=== PATIENT | male | born 1970 | race Caucasian/White ===

== ENCOUNTER 2017-11-17 17:08 | Inpatient (IN) | payer MEDICARE, OTHER ==
[~2017-11-17] VITALS: Ht 188 cm; Wt 93.0 kg
[2017-11-17] MEDS ORDERED: morphine 4 MG/ML inj SYRINge IV ONE (17:35)
[2017-11-17] MEDS ORDERED: ondansetron/PF 4mg/2ml inj IV ONE (17:35)
[2017-11-17] MEDS ORDERED: normal saline 1000ML IV soln IVB ONE (17:35)
[2017-11-17 18:15] LABS: BASOPHILS % (AUTO) 0.1 % (0-1); EOSINOPHILS # (AUTO) 0.1 X10'3 (0-0.9); EOSINOPHILS % (AUTO) 0.5 % (0-6); HEMATOCRIT 44.9 % (42.0-52.0); HEMOGLOBIN 15.2 g/dl (14.0-17.9); LYMPHOCYTES # (AUTO) 1.1 X10'3 (1.1-4.8); LYMPHOCYTES % (AUTO) 10.7 % (21-51); MEAN CORPUSCULAR HEMOGLOBIN 29.3 PG (27.0-31.0); MEAN CORPUSCULAR HGB CONC 33.9 % (33.0-36.5); MEAN CORPUSCULAR VOLUME 86.4 FL (78-98); MEAN PLATELET VOLUME 7.9 FL (7.4-10.4); MONOCYTES % (AUTO) 0.4 % (2-12); NEUTROPHILS # (AUTO) 9.1 X10'3 (1.8-7.7); NEUTROPHILS % (AUTO) 88.3 % (42-75); PLATELET COUNT 276 X10'3 (140-440); RED CELL DISTRIBUTION WIDTH 14.6 % (11.5-14.5); WHITE BLOOD COUNT 10.3 X10'3 (4.5-11.0)
[2017-11-17 18:30] LABS: ALANINE AMINOTRANSFERASE 27 U/L (12-78); ALBUMIN 3.8 G/DL (3.4-5.0); ALBUMIN/GLOBULIN RATIO 0.9 (1.1-1.5); ALKALINE PHOSPHATASE 145 IU/L (46-116); ANION GAP 13 (8-16); ASPARTATE AMINO TRANSFERASE 25 U/L (10-37); BILIRUBIN,TOTAL 0.8 MG/DL (0.1-1.0); BLOOD UREA NITROGEN 16 MG/DL (7-18); BUN/CREATININE RATIO 13.4 (5.4-32.0); CALCIUM 9.5 MG/DL (8.5-10.1); CHLORIDE 101 MMOL/L (99-107); CREATININE 1.19 MG/DL (0.60-1.10); GLUCOSE 114 MG/DL (70-104); LIPASE 69 U/L (73-393); SODIUM 135 MMOL/L (135-145); TOTAL CARBON DIOXIDE 21.1 MMOL/L (24-32); TOTAL PROTEIN 7.9 G/DL (6.4-8.2); eGFR 65 ML/MIN
[2017-11-17] MEDS ORDERED: iohexol 300mg/ml 100ml inj. ONE (18:33)
[2017-11-17] MEDS ORDERED: acetaminophen 325mg tablet PO PRN (20:40)
[2017-11-17] MEDS ORDERED: ondansetron/PF 4mg/2ml inj IV PRN (20:40)
[2017-11-17] MEDS ORDERED: bisacodyl 10mg suppository rectal RC PRN (20:55)
[2017-11-17 21:05] LABS: CLARITY,URINE CLEAR (Clear); COLOR,URINE DARK YELLOW (Yellow); GLUCOSE, URINE NEGATIVE (Neg); KETONES,URINE NEGATIVE (Neg); LEUKOCYTE ESTERASE ,URINE NEGATIVE (Neg); NITRITES, URINE NEGATIVE (Neg); OCCULT BLOOD,URINE NEGATIVE (Neg); PROTEIN,URINE TRACE mg/dl (Neg); UA COLLECTION TYPE CLN CATCH MIDSTREAM
[2017-11-17] MEDS ORDERED: BUPR1FIL3 SL (21:07)
[2017-11-17] MEDS ORDERED: LEVO125T PO (21:07)
[2017-11-17 21:16] LABS: BACTERIA,URINE NONE SEEN /HPF (Neg); RBC,URINE NONE SEEN /HPF (0-2); SQUAMOUS EPITHELIAL CELL,UR FEW /LPF (FEW); WBC,URINE NONE SEEN /HPF (0-4)
[2017-11-17] MEDS: morphine 4 MG/ML inj SYRINge IV PRN (22:06)
[2017-11-17] MEDS: normal saline 1000ml 1,000 ML IV SCH ×2 (22:06→23:52)
[2017-11-17 23:10] VITALS: BP 138/80
[2017-11-17] MEDS: metroNIDAZOLE-Flagyl 500mg/NS 100 ML IV SCH (23:45)
[2017-11-18] MEDS: morphine 4 MG/ML inj SYRINge IV PRN (05:22)
[2017-11-18 05:33] LABS: BASOPHILS % (AUTO) 0 % (0-1); EOSINOPHILS # (AUTO) 0.1 X10'3 (0-0.9); EOSINOPHILS % (AUTO) 0.5 % (0-6); HEMATOCRIT 37.5 % (42.0-52.0); HEMOGLOBIN 12.9 g/dl (14.0-17.9); LYMPHOCYTES # (AUTO) 1.1 X10'3 (1.1-4.8); LYMPHOCYTES % (AUTO) 9.2 % (21-51); MEAN CORPUSCULAR HEMOGLOBIN 29.7 PG (27.0-31.0); MEAN CORPUSCULAR HGB CONC 34.5 % (33.0-36.5); MEAN CORPUSCULAR VOLUME 86.3 FL (78-98); MEAN PLATELET VOLUME 8.1 FL (7.4-10.4); MONOCYTES # (AUTO) 0.8 X10'3 (0-0.9); MONOCYTES % (AUTO) 7.4 % (2-12); NEUTROPHILS # (AUTO) 9.5 X10'3 (1.8-7.7); NEUTROPHILS % (AUTO) 82.9 % (42-75); PLATELET COUNT 299 X10'3 (140-440); RED BLOOD COUNT 4.34 X10'6 (4.70-6.10); RED CELL DISTRIBUTION WIDTH 14.3 % (11.5-14.5); WHITE BLOOD COUNT 11.5 X10'3 (4.5-11.0)
[2017-11-18 05:45] LABS: ALBUMIN 2.7 G/DL (3.4-5.0); ANION GAP 9 (8-16); BLOOD UREA NITROGEN 17 MG/DL (7-18); BUN/CREATININE RATIO 14.2 (5.4-32.0); CALCIUM 7.8 MG/DL (8.5-10.1); CHLORIDE 106 MMOL/L (99-107); GLUCOSE 116 MG/DL (70-104); MAGNESIUM 1.9 MG/DL (1.5-2.4); PHOSPHORUS 4.2 MG/DL (2.3-4.5); SODIUM 137 MMOL/L (135-145); TOTAL CARBON DIOXIDE 22.4 MMOL/L (24-32); eGFR 64 ML/MIN
[2017-11-18 06:00] VITALS: BP 98/51
[2017-11-18] MEDS: metroNIDAZOLE-Flagyl 500mg/NS 100 ML IV SCH (07:49)
[2017-11-18] MEDS ORDERED: ciprofloxacin lact 400MG/200ML 200 ML IV SCH (08:00)
[2017-11-18 10:00] VITALS: BP 90/50
[2017-11-18 18:00] VITALS: BP 127/74
[2017-11-18] MEDS ORDERED: buprenorphine/naloxone 2-0.5mg sublingual tablet SL ONE (18:05)
[2017-11-18] MEDS: docusate sod 100mg capsule PO SCH (19:45)
[2017-11-18] MEDS: normal saline 1000ml 1,000 ML IV SCH (19:58)
[2017-11-18] MEDS: sennosides 8.6mg tablet PO SCH (21:00)
[2017-11-18 22:00] VITALS: BP 123/68
[2017-11-19] MEDS: normal saline 1000ml 1,000 ML IV SCH ×3 (05:36→22:57)
[2017-11-19 05:58] LABS: ALBUMIN 2.5 G/DL (3.4-5.0); ANION GAP 7 (8-16); BASOPHILS % (AUTO) 0.5 % (0-1); BLOOD UREA NITROGEN 14 MG/DL (7-18); BUN/CREATININE RATIO 13.7 (5.4-32.0); CALCIUM 7.9 MG/DL (8.5-10.1); CHLORIDE 104 MMOL/L (99-107); CREATININE 1.02 MG/DL (0.60-1.10); EOSINOPHILS # (AUTO) 0.1 X10'3 (0-0.9); EOSINOPHILS % (AUTO) 2.4 % (0-6); GLUCOSE 98 MG/DL (70-104); HEMATOCRIT 32.5 % (42.0-52.0); HEMOGLOBIN 10.9 g/dl (14.0-17.9); LYMPHOCYTES # (AUTO) 1.7 X10'3 (1.1-4.8); LYMPHOCYTES % (AUTO) 28.2 % (21-51); MAGNESIUM 1.8 MG/DL (1.5-2.4); MEAN CORPUSCULAR HEMOGLOBIN 29.3 PG (27.0-31.0); MEAN CORPUSCULAR HGB CONC 33.6 % (33.0-36.5); MEAN CORPUSCULAR VOLUME 87.1 FL (78-98); MEAN PLATELET VOLUME 8.1 FL (7.4-10.4); MONOCYTES # (AUTO) 0.6 X10'3 (0-0.9); MONOCYTES % (AUTO) 9.6 % (2-12); NEUTROPHILS # (AUTO) 3.6 X10'3 (1.8-7.7); NEUTROPHILS % (AUTO) 59.3 % (42-75); PHOSPHORUS 2.7 MG/DL (2.3-4.5); PLATELET COUNT 245 X10'3 (140-440); POTASSIUM 3.9 MMOL/L (3.5-5.1); RED BLOOD COUNT 3.72 X10'6 (4.70-6.10); RED CELL DISTRIBUTION WIDTH 14.9 % (11.5-14.5); SODIUM 136 MMOL/L (135-145); TOTAL CARBON DIOXIDE 24.6 MMOL/L (24-32); WHITE BLOOD COUNT 6.1 X10'3 (4.5-11.0); eGFR 78 ML/MIN
[2017-11-19] MEDS ORDERED: NALOXONE SL SCH (08:00)
[2017-11-19] MEDS ORDERED: BUPRENORPHINE SL SCH (08:00)
[2017-11-19] MEDS: docusate sod 100mg capsule PO SCH ×2 (08:00→19:01)
[2017-11-19] MEDS: aspirin 81mg tab.chew PO SCH (08:10)
[2017-11-19] MEDS: levoTHYROXINE 125mcg tablet PO SCH (08:10)
[2017-11-19] MEDS: buprenorphine/naloxone 2-0.5mg sublingual tablet SL SCH (08:30)
[2017-11-19] MEDS ORDERED: temazepam 15mg capsule PO PRN (14:00)
[2017-11-19] MEDS ORDERED: temazepam 15mg capsule PO SCH (14:05)
[2017-11-19 18:00] VITALS: BP 138/80
[2017-11-19] MEDS: sennosides 8.6mg tablet PO SCH (21:00)
[2017-11-19 22:00] VITALS: BP 138/72
[2017-11-20 05:25] LABS: BASOPHILS % (AUTO) 0.4 % (0-1); EOSINOPHILS # (AUTO) 0.1 X10'3 (0-0.9); EOSINOPHILS % (AUTO) 2.4 % (0-6); HEMATOCRIT 33.6 % (42.0-52.0); HEMOGLOBIN 11.1 g/dl (14.0-17.9); LYMPHOCYTES # (AUTO) 2.2 X10'3 (1.1-4.8); LYMPHOCYTES % (AUTO) 37.2 % (21-51); MEAN CORPUSCULAR HEMOGLOBIN 28.8 PG (27.0-31.0); MEAN CORPUSCULAR HGB CONC 32.9 % (33.0-36.5); MEAN CORPUSCULAR VOLUME 87.4 FL (78-98); MEAN PLATELET VOLUME 7.8 FL (7.4-10.4); MONOCYTES # (AUTO) 0.4 X10'3 (0-0.9); MONOCYTES % (AUTO) 6.3 % (2-12); NEUTROPHILS # (AUTO) 3.1 X10'3 (1.8-7.7); NEUTROPHILS % (AUTO) 53.7 % (42-75); PLATELET COUNT 256 X10'3 (140-440); RED BLOOD COUNT 3.85 X10'6 (4.70-6.10); RED CELL DISTRIBUTION WIDTH 14.8 % (11.5-14.5); WHITE BLOOD COUNT 5.8 X10'3 (4.5-11.0)
[2017-11-20 05:57] LABS: ALBUMIN 2.7 G/DL (3.4-5.0); ANION GAP 7 (8-16); BLOOD UREA NITROGEN 8 MG/DL (7-18); BUN/CREATININE RATIO 8.4 (5.4-32.0); CALCIUM 8.3 MG/DL (8.5-10.1); CHLORIDE 106 MMOL/L (99-107); CREATININE 0.95 MG/DL (0.60-1.10); GLUCOSE 102 MG/DL (70-104); PHOSPHORUS 3.8 MG/DL (2.3-4.5); POTASSIUM 3.8 MMOL/L (3.5-5.1); SODIUM 141 MMOL/L (135-145); TOTAL CARBON DIOXIDE 27.9 MMOL/L (24-32); eGFR 84 ML/MIN
[2017-11-20 06:00] VITALS: BP 120/92
[2017-11-20] MEDS: docusate sod 100mg capsule PO SCH (07:55)
[2017-11-20] MEDS: aspirin 81mg tab.chew PO SCH (07:58)
[2017-11-20] MEDS: levoTHYROXINE 125mcg tablet PO SCH (07:58)
[2017-11-20] MEDS: buprenorphine/naloxone 2-0.5mg sublingual tablet SL SCH (07:58)
[2017-11-20] MEDS: normal saline 1000ml 1,000 ML IV SCH (08:37)
[2017-11-20 10:25] VITALS: BP 125/74
[2017-11-20] MEDS ORDERED: METR500T4 PO (12:52)
== END 2017-11-20 14:50 | disposition home or self-care (01) | DRG 392 ==
LOC: ER 17:08 → ED HOLD 20:37 → EDBEDREQ 22:38 → ORTHO 4S 23:00 → CMPBEDREQ 23:03
PROVIDERS: ADMIT Family Medicine; ATTEND Internal Medicine
PROC: BW211ZZ Computerized Tomography (CT Scan) of Abdomen and Pelvis using Low Osmolar Contrast (ICD-10-PCS; principal; 2017-11-17)
DX: K52.9 Noninfective gastroenteritis and colitis, unspecified (principal); E89.0 Postprocedural hypothyroidism; I25.10 Atherosclerotic heart disease of native coronary artery without angina pectoris; G89.29 Other chronic pain; J44.9 Chronic obstructive pulmonary disease, unspecified; K59.00 Constipation, unspecified; I25.2 Old myocardial infarction; Z95.5 Presence of coronary angioplasty implant and graft; Z90.49 Acquired absence of other specified parts of digestive tract; Z88.8 Allergy status to other drugs, medicaments and biological substances; Z79.899 Other long term (current) drug therapy; Z85.850 Personal history of malignant neoplasm of thyroid; Z87.891 Personal history of nicotine dependence
CPT/HCPCS: 36415; 74177; 80048; 80053; 81001; 83605; 83690; 83735; 84100; 84443; 85025; 87040; 87045; 87046; 87070; 87324; 87449; 89055; J0744; J2270; J2405; J3490; J7030; Q9967

== ENCOUNTER 2018-02-22 12:58 | Emergency (ER) | payer MEDICARE ==
[~2018-02-22 12:58] MED LIST: BUPR1FIL3 SL; LEVO125T PO
[2018-02-22] MEDS ORDERED: morphine 4 MG/ML inj SYRINge IM ONE (13:15)
[2018-02-22] MEDS ORDERED: ondansetron/PF 4mg/2ml inj IV ONE ×2 (13:15→13:20)
[2018-02-22] MEDS ORDERED: normal saline 1000ML IV soln IVB ONE (13:20)
[2018-02-22] MEDS ORDERED: morphine 4 MG/ML inj SYRINge IV PRN (13:20)
[2018-02-22 13:47] LABS: BASOPHILS % (AUTO) 0.1 % (0-1); EOSINOPHILS # (AUTO) 0.1 X10'3 (0-0.9); EOSINOPHILS % (AUTO) 0.9 % (0-6); HEMATOCRIT 36.7 % (42.0-52.0); HEMOGLOBIN 12.5 g/dl (14.0-17.9); LYMPHOCYTES # (AUTO) 1.2 X10'3 (1.1-4.8); LYMPHOCYTES % (AUTO) 11.2 % (21-51); MEAN CORPUSCULAR HEMOGLOBIN 29.5 PG (27.0-31.0); MEAN CORPUSCULAR HGB CONC 33.9 % (33.0-36.5); MEAN PLATELET VOLUME 7.6 FL (7.4-10.4); MONOCYTES # (AUTO) 0.1 X10'3 (0-0.9); MONOCYTES % (AUTO) 0.5 % (2-12); NEUTROPHILS # (AUTO) 9.1 X10'3 (1.8-7.7); NEUTROPHILS % (AUTO) 87.3 % (42-75); PLATELET COUNT 282 X10'3 (140-440); RED BLOOD COUNT 4.22 X10'6 (4.70-6.10); RED CELL DISTRIBUTION WIDTH 14.7 % (11.5-14.5); WHITE BLOOD COUNT 10.4 X10'3 (4.5-11.0)
[2018-02-22 14:01] LABS: ALANINE AMINOTRANSFERASE 18 U/L (12-78); ALBUMIN 3.6 G/DL (3.4-5.0); ALKALINE PHOSPHATASE 88 IU/L (46-116); ANION GAP 6 (8-16); ASPARTATE AMINO TRANSFERASE 17 U/L (10-37); BILIRUBIN,TOTAL 0.2 MG/DL (0.1-1.0); BLOOD UREA NITROGEN 10 MG/DL (7-18); BUN/CREATININE RATIO 9.3 (5.4-32.0); CALCIUM 8.5 MG/DL (8.5-10.1); CHLORIDE 102 MMOL/L (99-107); CREATININE 1.08 MG/DL (0.60-1.10); GLUCOSE 108 MG/DL (70-104); LIPASE 77 U/L (73-393); POTASSIUM 4.3 MMOL/L (3.5-5.1); SODIUM 133 MMOL/L (135-145); TOTAL CARBON DIOXIDE 25.4 MMOL/L (24-32); TOTAL PROTEIN 7.1 G/DL (6.4-8.2); eGFR 73 ML/MIN
[2018-02-22 14:38] LABS: CLARITY,URINE CLEAR (Clear); COLOR,URINE YELLOW (Yellow); GLUCOSE, URINE NEGATIVE (Neg); KETONES,URINE NEGATIVE (Neg); LEUKOCYTE ESTERASE ,URINE NEGATIVE (Neg); NITRITES, URINE NEGATIVE (Neg); OCCULT BLOOD,URINE NEGATIVE (Neg); PROTEIN,URINE NEGATIVE (Neg); UROBILINOGEN,URINE 0.2 E.U/dL (0.2-1.0)
[2018-02-22 14:39] LABS: UA COLLECTION TYPE URINAL
[2018-02-22 15:22] VITALS: BP 171/97
[2018-02-22] MEDS ORDERED: CIPR-259 PO (15:24)
[2018-02-22] MEDS ORDERED: METR500T PO (15:24)
== END 2018-02-22 15:40 | disposition home or self-care (01) ==
LOC: ER 12:58
DX: K52.9 Noninfective gastroenteritis and colitis, unspecified (principal); G89.29 Other chronic pain; Z90.49 Acquired absence of other specified parts of digestive tract; Z98.890 Other specified postprocedural states; Z88.8 Allergy status to other drugs, medicaments and biological substances; Z79.899 Other long term (current) drug therapy
CPT/HCPCS: 36415; 74176; 80053; 81003; 83605; 83690; 85025; 96361; 96372; 96374; 99285; J2270; J2405; J7030

== ENCOUNTER 2018-05-18 12:56 | Emergency (ER) | payer MEDICARE ==
[~2018-05-18] VITALS: Ht 188 cm; Wt 81.0 kg
[2018-05-18 14:03] LABS: HEMATOCRIT 37.8 % (42.0-52.0); HEMOGLOBIN 12.9 g/dl (14.0-17.9); MEAN CORPUSCULAR HEMOGLOBIN 30.2 PG (27.0-31.0); MEAN CORPUSCULAR HGB CONC 34.2 % (33.0-36.5); MEAN CORPUSCULAR VOLUME 88.3 FL (78-98); MEAN PLATELET VOLUME 8.5 FL (7.4-10.4); NEUTROPHILS % (AUTO) 85.8 % (42-75); PLATELET COUNT 335 X10'3 (140-440); RED BLOOD COUNT 4.28 X10'6 (4.70-6.10); RED CELL DISTRIBUTION WIDTH 14.6 % (11.5-14.5); WHITE BLOOD COUNT 9.5 X10'3 (4.5-11.0)
[2018-05-18 14:04] LABS: BASOPHILS # (AUTO) 0.1 X10'3 (0-0.2); BASOPHILS % (AUTO) 1.3 % (0-1); EOSINOPHILS % (AUTO) 0 % (0-6); LYMPHOCYTES % (AUTO) 10.2 % (21-51); MONOCYTES # (AUTO) 0.3 X10'3 (0-0.9); MONOCYTES % (AUTO) 2.7 % (2-12); NEUTROPHILS # (AUTO) 8.1 X10'3 (1.8-7.7)
[2018-05-18 14:13] LABS: ALANINE AMINOTRANSFERASE 14 U/L (12-78); ALBUMIN 3.7 G/DL (3.4-5.0); ALKALINE PHOSPHATASE 114 IU/L (46-116); ANION GAP 12 (8-16); ASPARTATE AMINO TRANSFERASE 16 U/L (10-37); BILIRUBIN,TOTAL 0.3 MG/DL (0.1-1.0); BLOOD UREA NITROGEN 10 MG/DL (7-18); BUN/CREATININE RATIO 10.5 (5.4-32.0); CALCIUM 8.7 MG/DL (8.5-10.1); CHLORIDE 103 MMOL/L (99-107); CREATININE 0.95 MG/DL (0.60-1.10); GLUCOSE 121 MG/DL (70-104); POTASSIUM 4.1 MMOL/L (3.5-5.1); SODIUM 141 MMOL/L (135-145); TOTAL CARBON DIOXIDE 26.1 MMOL/L (24-32); TOTAL PROTEIN 7.4 G/DL (6.4-8.2); eGFR 84 ML/MIN
[2018-05-18 14:22] LABS: ETHANOL < 0.010 GM/DL (0.0-0.010)
[2018-05-18 15:40] LABS: URINE AMPHETAMINE SCREEN NEGATIVE (Neg); URINE BARBITUATE SCREEN NEGATIVE (Neg); URINE BENZODIAZEPINES SCREEN NEGATIVE (Neg); URINE CANNABINOID SCREEN POSITIVE (Neg); URINE COCAINE SCREEN NEGATIVE (Neg); URINE METHADONE SCREEN NEGATIVE (Neg); URINE OPIATE SCREEN NEGATIVE (Neg); URINE PHENCYCLIDINE SCREEN NEGATIVE (Neg)
[2018-05-18 16:07] LABS: CLARITY,URINE CLEAR (Clear); COLOR,URINE STRAW (Yellow); GLUCOSE, URINE NEGATIVE (Neg); KETONES,URINE NEGATIVE (Neg); LEUKOCYTE ESTERASE ,URINE NEGATIVE (Neg); NITRITES, URINE NEGATIVE (Neg); OCCULT BLOOD,URINE NEGATIVE (Neg); PH,URINE 6.5 (4.8-8.0); PROTEIN,URINE NEGATIVE (Neg); UROBILINOGEN,URINE 0.2 E.U/dL (0.2-1.0)
[2018-05-18 16:13] LABS: UA COLLECTION TYPE CLN CATCH MIDSTREAM
[2018-05-18 18:29] VITALS: BP 151/98
[2018-05-18] MEDS ORDERED: ondansetron 4mg rapidly disintigrating tab PO ONE (20:45)
[2018-05-18] MEDS ORDERED: mirtazapine 15mg tablet PO ONE (21:00)
[2018-05-19] MEDS ORDERED: LORA-269 PO (00:28)
[2018-05-19] MEDS ORDERED: TRAZ-218 PO (00:28)
[2018-05-19] MEDS ORDERED: buprenorphine/naloxone 8mg/2mg SL tablet SL SCH (08:00)
[2018-05-19] MEDS ORDERED: levoTHYROXINE 125mcg tablet PO SCH (08:00)
[2018-05-19] MEDS ORDERED: mirtazapine 15mg tablet PO SCH (21:00)
== END 2018-05-18 22:50 | disposition home or self-care (01) ==
LOC: ER 13:01
DX: F41.9 Anxiety disorder, unspecified (principal); R45.851 Suicidal ideations; F32.9 Major depressive disorder, single episode, unspecified; E03.9 Hypothyroidism, unspecified; G89.29 Other chronic pain; F17.210 Nicotine dependence, cigarettes, uncomplicated; F12.90 Cannabis use, unspecified, uncomplicated; Z90.49 Acquired absence of other specified parts of digestive tract; Z88.8 Allergy status to other drugs, medicaments and biological substances; Z79.899 Other long term (current) drug therapy
CPT/HCPCS: 36415; 80053; 80305; 80320; 81003; 84443; 85025; 99284

== ENCOUNTER 2018-05-18 22:00 | Inpatient (IN) | payer MEDICARE, OTHER ==
[~2018-05-18] VITALS: Ht 188 cm; Wt 78.3 kg
[2018-05-19] MEDS ORDERED: LORA-269 PO (00:28)
[2018-05-19] MEDS ORDERED: TRAZ-218 PO (00:28)
[2018-05-19] MEDS ORDERED: acetaminophen 325mg tablet PO PRN ×2 (01:00)
[2018-05-19] MEDS ORDERED: magnesium hydroxide 30ml (MOM) UD suspension PO PRN (01:00)
[2018-05-19] MEDS ORDERED: mag hydrox/Alum hydrox/simeth 30ml oral suspension PO PRN (01:00)
[2018-05-19] MEDS ORDERED: buprenorphine/naloxone 8mg/2mg SL tablet SL SCH ×2 (03:00→08:00)
[2018-05-19] MEDS: levoTHYROXINE 125mcg tablet PO SCH (07:47)
[2018-05-19 08:00] VITALS: BP 146/85
[2018-05-19 10:08] LABS: CHOL/HDL RATIO 6.3 (0.00-4.99); CHOLESTEROL 292 MG/DL (0-200); HDL CHOLESTEROL 46 MG/DL (35-60); LDL CHOLESTEROL 228 MG/DL (50-100); TRIGLYCERIDES 93 MG/DL (20-135)
[2018-05-19 10:20] LABS: HEMOGLOBIN A1C 6.1 % (4.5-6.2)
[2018-05-19] MEDS: ondansetron 4mg rapidly disintigrating tab PO PRN (17:33)
[2018-05-19] MEDS: pantoprazole 40mg Tablet.DR PO SCH (17:37)
[2018-05-19 19:41] VITALS: BP 160/99
[2018-05-19] MEDS: mirtazapine 15mg tablet PO SCH (20:59)
[2018-05-19] MEDS: diatr meglu/diatrizoate 30ml oral sol.-(3 dose) bottle PO SCH (20:59)
[2018-05-19] MEDS ORDERED: traZODone 50mg tablet PO PRN (21:00)
[2018-05-19] MEDS ORDERED: traZODone 50mg tablet PO SCH (21:00)
[2018-05-20] MEDS: diatr meglu/diatrizoate 30ml oral sol.-(3 dose) bottle PO SCH ×2 (07:20→09:18)
[2018-05-20] MEDS: aspirin 81mg tablet.DR PO SCH (07:20)
[2018-05-20] MEDS: pantoprazole 40mg Tablet.DR PO SCH (07:20)
[2018-05-20] MEDS: levoTHYROXINE 125mcg tablet PO SCH (07:20)
[2018-05-20] MEDS: atorvastatin 20mg tablet PO SCH (07:21)
[2018-05-20] MEDS: buprenorphine/naloxone 2-0.5mg sublingual tablet SL SCH (07:22)
[2018-05-20 08:04] VITALS: BP 130/82
[2018-05-20] MEDS ORDERED: iohexol 300mg/ml 100ml inj. ONE (08:55)
[2018-05-20 19:00] VITALS: BP 111/63
[2018-05-20] MEDS: mirtazapine 15mg tablet PO SCH (21:45)
[2018-05-20] MEDS: LORazepam 1 MG tablet PO PRN (22:02)
[2018-05-21] MEDS: pantoprazole 40mg Tablet.DR PO SCH (07:32)
[2018-05-21] MEDS: levoTHYROXINE 125mcg tablet PO SCH (07:32)
[2018-05-21] MEDS: aspirin 81mg tablet.DR PO SCH (07:33)
[2018-05-21] MEDS: buprenorphine/naloxone 2-0.5mg sublingual tablet SL SCH (07:33)
[2018-05-21] MEDS: atorvastatin 20mg tablet PO SCH (07:33)
[2018-05-21 08:19] VITALS: BP 152/84
[2018-05-21] MEDS: LORazepam 1 MG tablet PO PRN (10:54)
[2018-05-21 19:00] VITALS: BP 93/65
[2018-05-21] MEDS: mirtazapine 15mg tablet PO SCH (21:00)
[2018-05-21] MEDS: traZODone 50mg tablet PO PRN (21:01)
[2018-05-22 07:34] VITALS: BP 132/75
[2018-05-22] MEDS: buprenorphine/naloxone 2-0.5mg sublingual tablet SL SCH (07:34)
[2018-05-22] MEDS: pantoprazole 40mg Tablet.DR PO SCH (07:35)
[2018-05-22] MEDS: levoTHYROXINE 125mcg tablet PO SCH (07:35)
[2018-05-22] MEDS: aspirin 81mg tablet.DR PO SCH (07:35)
[2018-05-22] MEDS: atorvastatin 20mg tablet PO SCH (07:35)
[2018-05-22 19:00] VITALS: BP 108/74
[2018-05-22] MEDS: LORazepam 1 MG tablet PO PRN (20:36)
[2018-05-22] MEDS: mirtazapine 15mg tablet PO SCH (21:35)
[2018-05-22] MEDS: traZODone 50mg tablet PO PRN (21:35)
[2018-05-23] MEDS: aspirin 81mg tablet.DR PO SCH (07:34)
[2018-05-23] MEDS: levoTHYROXINE 125mcg tablet PO SCH (07:34)
[2018-05-23] MEDS: buprenorphine/naloxone 2-0.5mg sublingual tablet SL SCH (07:34)
[2018-05-23] MEDS: atorvastatin 20mg tablet PO SCH (07:34)
[2018-05-23] MEDS: nicotine 14mg patch - 24hr TD SCH (07:34)
[2018-05-23] MEDS: pantoprazole 40mg Tablet.DR PO SCH (07:34)
[2018-05-23 08:00] VITALS: BP 131/71
[2018-05-23] MEDS ORDERED: nicotine 21mg patch - 24 hr TD SCH (08:00)
[2018-05-23] MEDS: nicotine prolacrilex 2mg gum BC PRN ×2 (14:04→20:09)
[2018-05-23 19:00] VITALS: BP 114/69
[2018-05-23] MEDS: traZODone 50mg tablet PO PRN (21:51)
[2018-05-23] MEDS: mirtazapine 15mg tablet PO SCH (21:51)
[2018-05-24] MEDS: pantoprazole 40mg Tablet.DR PO SCH (07:34)
[2018-05-24] MEDS: atorvastatin 20mg tablet PO SCH (07:34)
[2018-05-24] MEDS: buprenorphine/naloxone 2-0.5mg sublingual tablet SL SCH (07:34)
[2018-05-24] MEDS: levoTHYROXINE 125mcg tablet PO SCH (07:34)
[2018-05-24] MEDS: aspirin 81mg tablet.DR PO SCH (07:34)
[2018-05-24] MEDS: nicotine 14mg patch - 24hr TD SCH (07:35)
[2018-05-24 08:00] VITALS: BP 126/80
[2018-05-24] MEDS: nicotine prolacrilex 2mg gum BC PRN ×3 (09:58→19:13)
[2018-05-24 19:21] VITALS: BP_SYST 106; BP_SYST 156; BP_DIAS 70; BP_DIAS 85
[2018-05-24] MEDS: mirtazapine 15mg tablet PO SCH (20:36)
[2018-05-24] MEDS: traZODone 50mg tablet PO PRN (20:36)
[2018-05-25] MEDS: atorvastatin 20mg tablet PO SCH (07:39)
[2018-05-25] MEDS: levoTHYROXINE 125mcg tablet PO SCH (07:39)
[2018-05-25] MEDS: aspirin 81mg tablet.DR PO SCH (07:39)
[2018-05-25] MEDS: pantoprazole 40mg Tablet.DR PO SCH (07:39)
[2018-05-25] MEDS: duloxetine 30mg CAPSULE.DR PO SCH (07:39)
[2018-05-25] MEDS: buprenorphine/naloxone 2-0.5mg sublingual tablet SL SCH (07:39)
[2018-05-25] MEDS: nicotine 14mg patch - 24hr TD SCH (07:39)
[2018-05-25 08:00] VITALS: BP 132/72
[2018-05-25] MEDS: ondansetron 4mg rapidly disintigrating tab PO PRN (10:05)
[2018-05-25] MEDS: nicotine prolacrilex 2mg gum BC PRN ×3 (13:24→20:32)
[2018-05-25 19:53] VITALS: BP 98/57
[2018-05-25] MEDS: mirtazapine 15mg tablet PO SCH (21:34)
[2018-05-25] MEDS: traZODone 50mg tablet PO PRN (22:09)
[2018-05-26 08:00] VITALS: BP 140/54
[2018-05-26] MEDS: Protein Shake (high protein) 240ml (8oz) cup PO SCH ×4 (08:00→18:55)
[2018-05-26] MEDS: atorvastatin 20mg tablet PO SCH (08:05)
[2018-05-26] MEDS: pantoprazole 40mg Tablet.DR PO SCH (08:05)
[2018-05-26] MEDS: aspirin 81mg tablet.DR PO SCH (08:05)
[2018-05-26] MEDS: buprenorphine/naloxone 2-0.5mg sublingual tablet SL SCH (08:05)
[2018-05-26] MEDS: duloxetine 30mg CAPSULE.DR PO SCH (08:05)
[2018-05-26] MEDS: levoTHYROXINE 125mcg tablet PO SCH (08:05)
[2018-05-26] MEDS: nicotine 14mg patch - 24hr TD SCH (08:06)
[2018-05-26] MEDS: nicotine prolacrilex 2mg gum BC PRN ×4 (10:51→21:55)
[2018-05-26 20:00] VITALS: BP 101/73
[2018-05-26] MEDS: traZODone 50mg tablet PO PRN (21:39)
[2018-05-26] MEDS: mirtazapine 15mg tablet PO SCH (21:39)
[2018-05-27] MEDS: duloxetine 30mg CAPSULE.DR PO SCH (07:45)
[2018-05-27] MEDS: aspirin 81mg tablet.DR PO SCH (07:45)
[2018-05-27] MEDS: levoTHYROXINE 125mcg tablet PO SCH (07:45)
[2018-05-27] MEDS: buprenorphine/naloxone 2-0.5mg sublingual tablet SL SCH (07:45)
[2018-05-27] MEDS: pantoprazole 40mg Tablet.DR PO SCH (07:45)
[2018-05-27] MEDS: atorvastatin 20mg tablet PO SCH (07:45)
[2018-05-27] MEDS: nicotine 14mg patch - 24hr TD SCH (07:46)
[2018-05-27] MEDS: Protein Shake (high protein) 240ml (8oz) cup PO SCH ×3 (08:06→18:04)
[2018-05-27 08:07] VITALS: BP 115/63
[2018-05-27] MEDS: nicotine prolacrilex 2mg gum BC PRN ×4 (12:44→21:39)
[2018-05-27 19:29] VITALS: BP 104/68
[2018-05-27] MEDS: mirtazapine 15mg tablet PO SCH (21:35)
[2018-05-27] MEDS: traZODone 50mg tablet PO PRN (21:36)
[2018-05-28] MEDS: levoTHYROXINE 125mcg tablet PO SCH (07:32)
[2018-05-28] MEDS: pantoprazole 40mg Tablet.DR PO SCH (07:32)
[2018-05-28] MEDS: nicotine 14mg patch - 24hr TD SCH (07:35)
[2018-05-28] MEDS: atorvastatin 20mg tablet PO SCH (07:36)
[2018-05-28] MEDS: buprenorphine/naloxone 2-0.5mg sublingual tablet SL SCH (07:36)
[2018-05-28] MEDS: aspirin 81mg tablet.DR PO SCH (07:36)
[2018-05-28] MEDS: duloxetine 30mg CAPSULE.DR PO SCH (07:36)
[2018-05-28] MEDS: Protein Shake (high protein) 240ml (8oz) cup PO SCH ×3 (08:00→18:01)
[2018-05-28 08:17] VITALS: BP 116/68
[2018-05-28] MEDS: ondansetron 4mg rapidly disintigrating tab PO PRN (10:36)
[2018-05-28] MEDS: nicotine prolacrilex 2mg gum BC PRN ×3 (13:35→21:18)
[2018-05-28 20:00] VITALS: BP 102/72
[2018-05-28] MEDS: traZODone 50mg tablet PO PRN (21:13)
[2018-05-28] MEDS: mirtazapine 15mg tablet PO SCH (21:13)
[2018-05-29] MEDS: duloxetine 30mg CAPSULE.DR PO SCH (07:40)
[2018-05-29] MEDS: levoTHYROXINE 125mcg tablet PO SCH (07:41)
[2018-05-29] MEDS: nicotine 14mg patch - 24hr TD SCH (07:41)
[2018-05-29] MEDS: atorvastatin 20mg tablet PO SCH (07:41)
[2018-05-29] MEDS: buprenorphine/naloxone 2-0.5mg sublingual tablet SL SCH (07:41)
[2018-05-29] MEDS: aspirin 81mg tablet.DR PO SCH (07:41)
[2018-05-29] MEDS: pantoprazole 40mg Tablet.DR PO SCH (07:41)
[2018-05-29 07:57] VITALS: BP 106/58
[2018-05-29] MEDS: Protein Shake (high protein) 240ml (8oz) cup PO SCH ×3 (08:39→18:00)
[2018-05-29] MEDS: nicotine prolacrilex 2mg gum BC PRN ×4 (10:16→21:01)
[2018-05-29 20:00] VITALS: BP 131/77
[2018-05-29] MEDS: mirtazapine 15mg tablet PO SCH (20:57)
[2018-05-29] MEDS: traZODone 50mg tablet PO PRN (20:57)
[2018-05-30] MEDS: levoTHYROXINE 125mcg tablet PO SCH (07:27)
[2018-05-30] MEDS: pantoprazole 40mg Tablet.DR PO SCH (07:27)
[2018-05-30] MEDS: buprenorphine/naloxone 2-0.5mg sublingual tablet SL SCH (07:27)
[2018-05-30] MEDS: aspirin 81mg tablet.DR PO SCH (07:27)
[2018-05-30] MEDS: atorvastatin 20mg tablet PO SCH (07:27)
[2018-05-30] MEDS: duloxetine 30mg CAPSULE.DR PO SCH (07:27)
[2018-05-30 08:00] VITALS: BP 122/68
[2018-05-30] MEDS: Protein Shake (high protein) 240ml (8oz) cup PO SCH ×3 (08:00→18:00)
[2018-05-30] MEDS: nicotine 14mg patch - 24hr TD SCH (08:00)
[2018-05-30] MEDS: nicotine prolacrilex 2mg gum BC PRN ×4 (10:32→21:06)
[2018-05-30 19:00] VITALS: BP 108/67
[2018-05-30] MEDS: traZODone 50mg tablet PO PRN (21:06)
[2018-05-30] MEDS: mirtazapine 15mg tablet PO SCH (21:06)
[2018-05-31] MEDS: buprenorphine/naloxone 2-0.5mg sublingual tablet SL SCH (07:34)
[2018-05-31] MEDS: aspirin 81mg tablet.DR PO SCH (07:34)
[2018-05-31] MEDS: atorvastatin 20mg tablet PO SCH (07:34)
[2018-05-31] MEDS: pantoprazole 40mg Tablet.DR PO SCH (07:35)
[2018-05-31] MEDS: duloxetine 30mg CAPSULE.DR PO SCH (07:35)
[2018-05-31] MEDS: levoTHYROXINE 125mcg tablet PO SCH (07:35)
[2018-05-31 08:00] VITALS: BP 122/75
[2018-05-31] MEDS: Protein Shake (high protein) 240ml (8oz) cup PO SCH ×3 (08:00→17:54)
[2018-05-31] MEDS: nicotine 14mg patch - 24hr TD SCH (08:00)
[2018-05-31] MEDS: nicotine prolacrilex 2mg gum BC PRN ×5 (09:10→20:44)
[2018-05-31 20:00] VITALS: BP 120/65
[2018-05-31] MEDS: mirtazapine 15mg tablet PO SCH (20:44)
[2018-05-31] MEDS: traZODone 50mg tablet PO PRN (20:44)
[2018-06-01] MEDS: pantoprazole 40mg Tablet.DR PO SCH (07:25)
[2018-06-01] MEDS: levoTHYROXINE 125mcg tablet PO SCH (07:25)
[2018-06-01 08:00] VITALS: BP 123/67
[2018-06-01] MEDS: nicotine 14mg patch - 24hr TD SCH (08:00)
[2018-06-01] MEDS: aspirin 81mg tablet.DR PO SCH (08:07)
[2018-06-01] MEDS: buprenorphine/naloxone 2-0.5mg sublingual tablet SL SCH (08:10)
[2018-06-01] MEDS: duloxetine 30mg CAPSULE.DR PO SCH (08:10)
[2018-06-01] MEDS: atorvastatin 20mg tablet PO SCH (08:10)
[2018-06-01] MEDS: Protein Shake (high protein) 240ml (8oz) cup PO SCH ×3 (08:13→18:00)
[2018-06-01] MEDS: nicotine prolacrilex 2mg gum BC PRN ×5 (09:46→21:10)
[2018-06-01] MEDS: docusate sod 100mg capsule PO PRN (17:53)
[2018-06-01 20:00] VITALS: BP 103/66
[2018-06-01] MEDS: traZODone 50mg tablet PO PRN (20:24)
[2018-06-01] MEDS: mirtazapine 15mg tablet PO SCH (20:24)
[2018-06-02] MEDS: aspirin 81mg tablet.DR PO SCH (07:22)
[2018-06-02] MEDS: docusate sod 100mg capsule PO PRN (07:22)
[2018-06-02] MEDS: levoTHYROXINE 125mcg tablet PO SCH (07:23)
[2018-06-02] MEDS: pantoprazole 40mg Tablet.DR PO SCH (07:23)
[2018-06-02] MEDS: atorvastatin 20mg tablet PO SCH (07:23)
[2018-06-02] MEDS: duloxetine 30mg CAPSULE.DR PO SCH (07:23)
[2018-06-02] MEDS: buprenorphine/naloxone 2-0.5mg sublingual tablet SL SCH (07:23)
[2018-06-02 08:00] VITALS: BP 122/67
[2018-06-02] MEDS: nicotine prolacrilex 2mg gum BC PRN ×3 (08:18→13:48)
[2018-06-02] MEDS: Protein Shake (high protein) 240ml (8oz) cup PO SCH ×2 (08:18→13:12)
[2018-06-02] MEDS ORDERED: NUT.237L32 PO (11:59)
[2018-06-02] MEDS ORDERED: PANT40TA4 PO (11:59)
[2018-06-02] MEDS ORDERED: ATOR40TA71 PO (11:59)
[2018-06-02] MEDS ORDERED: ONDA4TAB12 PO (11:59)
[2018-06-02] MEDS ORDERED: TRAZ-219 PO (11:59)
[2018-06-02] MEDS ORDERED: DULO60CA64 PO (11:59)
[2018-06-02] MEDS ORDERED: MIRT30TA8 PO (11:59)
[2018-06-02] MEDS ORDERED: BUPR1FIL5 SL (11:59)
[2018-06-02] MEDS ORDERED: ASPI-1071 PO (11:59)
[2018-06-02] MEDS ORDERED: COL100C PO (11:59)
[2018-06-02] MEDS ORDERED: LEVO125T PO (11:59)
[2018-06-02] MEDS ORDERED: NICO2GUM29 BC (11:59)
== END 2018-06-02 14:45 | disposition home or self-care (01) | DRG 885 ==
LOC: ADULT MH 22:00
PROVIDERS: ADMIT Psychiatry & Neurology Psychiatry; ATTEND Psychiatry & Neurology Psychiatry
DX: F33.2 Major depressive disorder, recurrent severe without psychotic features (principal); F11.20 Opioid dependence, uncomplicated; R45.851 Suicidal ideations; F43.10 Post-traumatic stress disorder, unspecified; F12.90 Cannabis use, unspecified, uncomplicated; G89.29 Other chronic pain; M54.5 Low back pain; E89.0 Postprocedural hypothyroidism; R06.4 Hyperventilation; R63.0 Anorexia; E78.00 Pure hypercholesterolemia, unspecified; F10.21 Alcohol dependence, in remission; F15.10 Other stimulant abuse, uncomplicated; Z60.2 Problems related to living alone; F17.210 Nicotine dependence, cigarettes, uncomplicated; F40.01 Agoraphobia with panic disorder; F41.1 Generalized anxiety disorder; G47.00 Insomnia, unspecified; I25.10 Atherosclerotic heart disease of native coronary artery without angina pectoris; K59.00 Constipation, unspecified; Z93.3 Colostomy status; Z95.5 Presence of coronary angioplasty implant and graft; Z23 Encounter for immunization; Z98.52 Vasectomy status; Z79.899 Other long term (current) drug therapy; Z85.850 Personal history of malignant neoplasm of thyroid; Z92.3 Personal history of irradiation; Z82.49 Family history of ischemic heart disease and other diseases of the circulatory system
CPT/HCPCS: 36415; 74177; 80061; 83036; 84443; 87070; Q2037; Q9963; Q9967

== ENCOUNTER 2018-07-26 10:32 | Emergency (ER) | payer MEDICARE, MEDICAID ==
[~2018-07-26] VITALS: Ht 188 cm; Wt 79.0 kg
[~2018-07-26 10:32] MED LIST changes: +ASPI-1071 PO; +ATOR40TA71 PO; -BUPR1FIL3 SL; +BUPR1FIL5 SL; +COL100C PO; +DULO60CA64 PO; +MIRT30TA8 PO; +NICO2GUM29 BC; +NUT.237L32 PO; +ONDA4TAB12 PO; +PANT40TA4 PO; +TRAZ-219 PO
[2018-07-26 11:11] LABS: BASOPHILS % (AUTO) 0.3 % (0-1); EOSINOPHILS # (AUTO) 0.1 X10'3 (0-0.9); EOSINOPHILS % (AUTO) 0.8 % (0-6); HEMATOCRIT 38.3 % (42.0-52.0); HEMOGLOBIN 12.4 g/dl (14.0-17.9); LYMPHOCYTES % (AUTO) 12.7 % (21-51); MEAN CORPUSCULAR HEMOGLOBIN 28.8 PG (27.0-31.0); MEAN CORPUSCULAR HGB CONC 32.5 % (33.0-36.5); MEAN CORPUSCULAR VOLUME 88.8 FL (78-98); MEAN PLATELET VOLUME 8.3 FL (7.4-10.4); MONOCYTES # (AUTO) 0.2 X10'3 (0-0.9); MONOCYTES % (AUTO) 2.5 % (2-12); NEUTROPHILS # (AUTO) 6.9 X10'3 (1.8-7.7); NEUTROPHILS % (AUTO) 83.7 % (42-75); PLATELET COUNT 337 X10'3 (140-440); RED BLOOD COUNT 4.31 X10'6 (4.70-6.10); RED CELL DISTRIBUTION WIDTH 16.4 % (11.5-14.5); WHITE BLOOD COUNT 8.2 X10'3 (4.5-11.0)
[2018-07-26 11:35] LABS: ALANINE AMINOTRANSFERASE 12 U/L (12-78); ALBUMIN 3.3 G/DL (3.4-5.0); ALKALINE PHOSPHATASE 115 IU/L (46-116); ANION GAP 12 (8-16); ASPARTATE AMINO TRANSFERASE 10 U/L (10-37); BILIRUBIN,TOTAL 0.2 MG/DL (0.1-1.0); BLOOD UREA NITROGEN 11 MG/DL (7-18); BUN/CREATININE RATIO 10.9 (5.4-32.0); CALCIUM 8.7 MG/DL (8.5-10.1); CHLORIDE 105 MMOL/L (99-107); CREATININE 1.01 MG/DL (0.60-1.10); GLUCOSE 95 MG/DL (70-104); POTASSIUM 3.5 MMOL/L (3.5-5.1); SODIUM 142 MMOL/L (135-145); TOTAL CARBON DIOXIDE 25.3 MMOL/L (24-32); TOTAL PROTEIN 6.6 G/DL (6.4-8.2); eGFR 78 ML/MIN
[2018-07-26] MEDS ORDERED: METR500T PO (11:57)
[2018-07-26 12:08] VITALS: BP 131/78
[2018-07-30] MEDS ORDERED: BUPR1FIL3 SL (12:00)
[2018-07-30] MEDS ORDERED: PANT-47 PO (12:00)
[2018-07-30] MEDS ORDERED: ONDA4TAB12 PO (12:00)
[2018-07-30] MEDS ORDERED: MIRT15TA PO (12:00)
[2018-07-30] MEDS ORDERED: DULO-31 PO (12:00)
[2018-07-30] MEDS ORDERED: LEVO125T PO (12:00)
[2018-07-30] MEDS ORDERED: TRAZ-219 PO (12:00)
[2018-07-30] MEDS ORDERED: ATOR40TA PO (12:00)
== END 2018-07-26 12:19 | disposition home or self-care (01) ==
LOC: ER 10:32
DX: R10.32 Left lower quadrant pain (principal); K59.00 Constipation, unspecified; E03.9 Hypothyroidism, unspecified; G89.29 Other chronic pain; Z90.49 Acquired absence of other specified parts of digestive tract; Z88.8 Allergy status to other drugs, medicaments and biological substances; Z79.82 Long term (current) use of aspirin; Z79.899 Other long term (current) drug therapy
CPT/HCPCS: 36415; 74176; 80053; 85025; 99284

== ENCOUNTER → 2018-07-30 | Emergency (ER) | payer MEDICARE, MEDICAID ==
[~2018-07-30] VITALS: Ht 188 cm; Wt 77.2 kg
[~2018-07-30] MED LIST changes: +ATOR40TA PO; +BUPR1FIL3 SL; +DULO-31 PO; +METR500T PO; +MIRT15TA PO; +PANT-47 PO; +nicotine prolacrilex 4mg gum BC PRN
[2018-07-30 11:16] LABS: CLARITY,URINE CLEAR (Clear); COLOR,URINE YELLOW (Yellow); GLUCOSE, URINE NEGATIVE (Neg); KETONES,URINE NEGATIVE (Neg); LEUKOCYTE ESTERASE ,URINE NEGATIVE (Neg); NITRITES, URINE NEGATIVE (Neg); OCCULT BLOOD,URINE NEGATIVE (Neg); PROTEIN,URINE NEGATIVE (Neg); UROBILINOGEN,URINE 0.2 E.U/dL (0.2-1.0)
[2018-07-30 11:22] LABS: UA COLLECTION TYPE VOIDED
[2018-07-30 11:57] LABS: BASOPHILS % (AUTO) 0.3 % (0-1); EOSINOPHILS % (AUTO) 0.2 % (0-6); HEMATOCRIT 34.3 % (42.0-52.0); HEMOGLOBIN 11.3 g/dl (14.0-17.9); LYMPHOCYTES % (AUTO) 7.7 % (21-51); MEAN CORPUSCULAR HEMOGLOBIN 29.2 PG (27.0-31.0); MEAN CORPUSCULAR HGB CONC 32.8 % (33.0-36.5); MEAN CORPUSCULAR VOLUME 89.1 FL (78-98); MEAN PLATELET VOLUME 8.1 FL (7.4-10.4); MONOCYTES # (AUTO) 0.4 X10'3 (0-0.9); MONOCYTES % (AUTO) 3.1 % (2-12); NEUTROPHILS # (AUTO) 11.1 X10'3 (1.8-7.7); NEUTROPHILS % (AUTO) 88.7 % (42-75); PLATELET COUNT 318 X10'3 (140-440); RED BLOOD COUNT 3.85 X10'6 (4.70-6.10); RED CELL DISTRIBUTION WIDTH 16.6 % (11.5-14.5); WHITE BLOOD COUNT 12.6 X10'3 (4.5-11.0)
[2018-07-30 12:08] LABS: PARTIAL THROMBOPLASTIN TIME 30 SECONDS (22-32); PROTHROMBIN TIME 10.1 SECONDS (9.0-12.0)
[2018-07-30 12:11] LABS: ALANINE AMINOTRANSFERASE 14 U/L (12-78); ALBUMIN 3.2 G/DL (3.4-5.0); ALKALINE PHOSPHATASE 91 IU/L (46-116); ANION GAP 9 (8-16); ASPARTATE AMINO TRANSFERASE 20 U/L (10-37); BILIRUBIN,TOTAL 0.3 MG/DL (0.1-1.0); BLOOD UREA NITROGEN 10 MG/DL (7-18); BUN/CREATININE RATIO 10.8 (5.4-32.0); CALCIUM 8.6 MG/DL (8.5-10.1); CHLORIDE 106 MMOL/L (99-107); CREATININE 0.93 MG/DL (0.60-1.10); GLUCOSE 97 MG/DL (70-104); MAGNESIUM 1.9 MG/DL (1.5-2.4); POTASSIUM 3.6 MMOL/L (3.5-5.1); SODIUM 142 MMOL/L (135-145); TOTAL CARBON DIOXIDE 26.9 MMOL/L (24-32); TOTAL PROTEIN 6.3 G/DL (6.4-8.2); eGFR 86 ML/MIN
[2018-07-30 13:54] LABS: URINE AMPHETAMINE SCREEN NEGATIVE (Neg); URINE BARBITUATE SCREEN NEGATIVE (Neg); URINE BENZODIAZEPINES SCREEN NEGATIVE (Neg); URINE CANNABINOID SCREEN POSITIVE (Neg); URINE COCAINE SCREEN NEGATIVE (Neg); URINE METHADONE SCREEN NEGATIVE (Neg); URINE OPIATE SCREEN NEGATIVE (Neg); URINE PHENCYCLIDINE SCREEN NEGATIVE (Neg)
[2018-07-30] MEDS: nicotine 14mg patch - 24hr TD SCH (20:13)
[2018-07-30] MEDS: traZODone 50mg tablet PO SCH (20:13)
[2018-07-30] MEDS: mirtazapine 15mg tablet PO SCH (20:14)
[2018-07-30] MEDS: nicotine prolacrilex 2mg gum BC PRN (20:19)
[2018-07-31] MEDS: levoTHYROXINE 125mcg tablet PO SCH (07:18)
[2018-07-31] MEDS: pantoprazole 40mg Tablet.DR PO SCH (07:19)
[2018-07-31] MEDS: atorvastatin 20mg tablet PO SCH (07:19)
[2018-07-31] MEDS: duloxetine 30mg CAPSULE.DR PO SCH (07:19)
[2018-07-31] MEDS: buprenorphine/naloxone 8mg/2mg SL tablet SL SCH (07:20)
[2018-07-31] MEDS: ondansetron 4mg rapidly disintigrating tab PO PRN (07:24)
[2018-07-31] MEDS: nicotine prolacrilex 2mg gum BC PRN ×3 (11:34→20:29)
[2018-07-31] MEDS: nicotine 14mg patch - 24hr TD SCH (20:00)
[2018-07-31] MEDS: traZODone 50mg tablet PO SCH (20:25)
[2018-07-31] MEDS: mirtazapine 15mg tablet PO SCH (20:25)
[2018-08-01] MEDS: nicotine 14mg patch - 24hr TD SCH (07:30)
[2018-08-01] MEDS: buprenorphine/naloxone 8mg/2mg SL tablet SL SCH (07:30)
[2018-08-01] MEDS: atorvastatin 20mg tablet PO SCH (07:30)
[2018-08-01] MEDS: duloxetine 30mg CAPSULE.DR PO SCH (07:31)
[2018-08-01] MEDS: pantoprazole 40mg Tablet.DR PO SCH (07:31)
[2018-08-01] MEDS: levoTHYROXINE 125mcg tablet PO SCH (07:34)
[2018-08-01] MEDS: ondansetron 4mg rapidly disintigrating tab PO PRN (08:22)
[2018-08-01] MEDS: nicotine prolacrilex 2mg gum BC PRN ×3 (09:57→21:18)
[2018-08-01] MEDS: traZODone 50mg tablet PO SCH (21:13)
[2018-08-01] MEDS: mirtazapine 15mg tablet PO SCH (21:13)
[2018-08-02] MEDS: buprenorphine/naloxone 8mg/2mg SL tablet SL SCH (07:39)
[2018-08-02] MEDS: atorvastatin 20mg tablet PO SCH (07:39)
[2018-08-02] MEDS: levoTHYROXINE 125mcg tablet PO SCH (07:39)
[2018-08-02] MEDS: pantoprazole 40mg Tablet.DR PO SCH (07:39)
[2018-08-02] MEDS: nicotine 14mg patch - 24hr TD SCH (07:40)
[2018-08-02] MEDS: duloxetine 30mg CAPSULE.DR PO SCH (07:40)
[2018-08-02] MEDS: nicotine prolacrilex 2mg gum BC PRN ×3 (11:08→20:21)
[2018-08-02] MEDS: mirtazapine 15mg tablet PO SCH (20:21)
[2018-08-02] MEDS: traZODone 50mg tablet PO SCH (20:21)
[2018-08-03] MEDS: duloxetine 30mg CAPSULE.DR PO SCH (08:04)
[2018-08-03] MEDS: levoTHYROXINE 125mcg tablet PO SCH (08:04)
[2018-08-03] MEDS: pantoprazole 40mg Tablet.DR PO SCH (08:04)
[2018-08-03] MEDS: buprenorphine/naloxone 8mg/2mg SL tablet SL SCH (08:05)
[2018-08-03] MEDS: atorvastatin 20mg tablet PO SCH (08:05)
[2018-08-03] MEDS: nicotine 14mg patch - 24hr TD SCH (08:06)
[2018-08-03] MEDS: nicotine prolacrilex 2mg gum BC PRN ×3 (09:56→21:02)
[2018-08-03] MEDS: traZODone 50mg tablet PO SCH (21:01)
[2018-08-03] MEDS: mirtazapine 15mg tablet PO SCH (21:02)
[2018-08-04] MEDS: duloxetine 30mg CAPSULE.DR PO SCH (08:11)
[2018-08-04] MEDS: atorvastatin 20mg tablet PO SCH (08:11)
[2018-08-04] MEDS: buprenorphine/naloxone 8mg/2mg SL tablet SL SCH (08:11)
[2018-08-04] MEDS: pantoprazole 40mg Tablet.DR PO SCH (08:11)
[2018-08-04] MEDS: nicotine 14mg patch - 24hr TD SCH (08:11)
[2018-08-04] MEDS: levoTHYROXINE 125mcg tablet PO SCH (08:36)
[2018-08-04] MEDS: nicotine prolacrilex 2mg gum BC PRN ×3 (10:47→20:23)
[2018-08-04] MEDS: mirtazapine 15mg tablet PO SCH (20:20)
[2018-08-04] MEDS: traZODone 50mg tablet PO SCH (20:20)
[2018-08-05] MEDS: levoTHYROXINE 125mcg tablet PO SCH (08:05)
[2018-08-05] MEDS: pantoprazole 40mg Tablet.DR PO SCH (08:05)
[2018-08-05] MEDS: buprenorphine/naloxone 8mg/2mg SL tablet SL SCH (08:05)
[2018-08-05] MEDS: nicotine 14mg patch - 24hr TD SCH (08:06)
[2018-08-05] MEDS: atorvastatin 20mg tablet PO SCH (08:06)
[2018-08-05] MEDS: duloxetine 30mg CAPSULE.DR PO SCH (08:18)
[2018-08-05] MEDS: nicotine prolacrilex 2mg gum BC PRN ×3 (11:31→20:26)
[2018-08-05] MEDS: traZODone 50mg tablet PO SCH (21:26)
[2018-08-05] MEDS: mirtazapine 15mg tablet PO SCH (21:26)
[2018-08-06] MEDS: pantoprazole 40mg Tablet.DR PO SCH (09:00)
[2018-08-06] MEDS: buprenorphine/naloxone 8mg/2mg SL tablet SL SCH (09:00)
[2018-08-06] MEDS: levoTHYROXINE 125mcg tablet PO SCH (09:00)
[2018-08-06] MEDS: atorvastatin 20mg tablet PO SCH (09:02)
[2018-08-06] MEDS: duloxetine 30mg CAPSULE.DR PO SCH (09:02)
[2018-08-06] MEDS: nicotine 14mg patch - 24hr TD SCH (09:05)
[2018-08-06] MEDS: nicotine prolacrilex 2mg gum BC PRN ×3 (11:12→19:41)
[2018-08-06] MEDS: traZODone 50mg tablet PO SCH (21:06)
[2018-08-06] MEDS: mirtazapine 15mg tablet PO SCH (21:06)
[2018-08-07] MEDS: duloxetine 30mg CAPSULE.DR PO SCH (08:03)
[2018-08-07] MEDS: levoTHYROXINE 125mcg tablet PO SCH (08:03)
[2018-08-07] MEDS: buprenorphine/naloxone 8mg/2mg SL tablet SL SCH (08:03)
[2018-08-07] MEDS: atorvastatin 20mg tablet PO SCH (08:03)
[2018-08-07] MEDS: nicotine 14mg patch - 24hr TD SCH (08:03)
[2018-08-07] MEDS: pantoprazole 40mg Tablet.DR PO SCH (08:03)
[2018-08-07] MEDS: nicotine prolacrilex 2mg gum BC PRN ×4 (09:36→19:17)
[2018-08-07] MEDS: mirtazapine 15mg tablet PO SCH (20:42)
[2018-08-07] MEDS: traZODone 50mg tablet PO SCH (20:42)
[2018-08-08] MEDS: atorvastatin 20mg tablet PO SCH (08:28)
[2018-08-08] MEDS: duloxetine 30mg CAPSULE.DR PO SCH (08:28)
[2018-08-08] MEDS: pantoprazole 40mg Tablet.DR PO SCH (08:28)
[2018-08-08] MEDS: levoTHYROXINE 125mcg tablet PO SCH (08:28)
[2018-08-08] MEDS: nicotine 14mg patch - 24hr TD SCH (08:30)
[2018-08-08] MEDS: buprenorphine/naloxone 8mg/2mg SL tablet SL SCH (08:35)
[2018-08-08] MEDS: nicotine prolacrilex 2mg gum BC PRN ×3 (11:03→20:40)
[2018-08-08] MEDS: traZODone 50mg tablet PO SCH (20:41)
[2018-08-08] MEDS: mirtazapine 15mg tablet PO SCH (20:41)
[2018-08-09] MEDS: atorvastatin 20mg tablet PO SCH (08:15)
[2018-08-09] MEDS: buprenorphine/naloxone 8mg/2mg SL tablet SL SCH (08:15)
[2018-08-09] MEDS: duloxetine 30mg CAPSULE.DR PO SCH (08:15)
[2018-08-09] MEDS: pantoprazole 40mg Tablet.DR PO SCH (08:15)
[2018-08-09] MEDS: nicotine 14mg patch - 24hr TD SCH (08:16)
[2018-08-09] MEDS: levoTHYROXINE 125mcg tablet PO SCH (08:18)
[2018-08-09] MEDS: nicotine prolacrilex 2mg gum BC PRN ×4 (10:23→19:22)
[2018-08-09] MEDS: mirtazapine 15mg tablet PO SCH (20:56)
[2018-08-09] MEDS: traZODone 50mg tablet PO SCH (20:56)
[2018-08-10] MEDS: pantoprazole 40mg Tablet.DR PO SCH (08:39)
[2018-08-10] MEDS: atorvastatin 20mg tablet PO SCH (08:40)
[2018-08-10] MEDS: nicotine 14mg patch - 24hr TD SCH (08:40)
[2018-08-10] MEDS: buprenorphine/naloxone 8mg/2mg SL tablet SL SCH (08:40)
[2018-08-10] MEDS: duloxetine 30mg CAPSULE.DR PO SCH (08:40)
[2018-08-10] MEDS: levoTHYROXINE 125mcg tablet PO SCH (08:53)
[2018-08-10] MEDS: nicotine prolacrilex 2mg gum BC PRN ×4 (11:09→21:25)
[2018-08-10] MEDS: traZODone 50mg tablet PO SCH (20:28)
[2018-08-10] MEDS: mirtazapine 15mg tablet PO SCH (20:29)
[2018-08-11] MEDS: buprenorphine/naloxone 8mg/2mg SL tablet SL SCH (07:42)
[2018-08-11] MEDS: nicotine 14mg patch - 24hr TD SCH (07:42)
[2018-08-11] MEDS: duloxetine 30mg CAPSULE.DR PO SCH (07:43)
[2018-08-11] MEDS: levoTHYROXINE 125mcg tablet PO SCH (07:43)
[2018-08-11] MEDS: pantoprazole 40mg Tablet.DR PO SCH (07:43)
[2018-08-11] MEDS: atorvastatin 20mg tablet PO SCH (07:43)
[2018-08-11] MEDS: nicotine prolacrilex 2mg gum BC PRN ×3 (10:12→20:18)
[2018-08-11] MEDS: traZODone 50mg tablet PO SCH (20:18)
[2018-08-11] MEDS: mirtazapine 15mg tablet PO SCH (20:18)
[2018-08-12] MEDS: pantoprazole 40mg Tablet.DR PO SCH (06:59)
[2018-08-12] MEDS: levoTHYROXINE 125mcg tablet PO SCH (06:59)
[2018-08-12] MEDS: nicotine prolacrilex 2mg gum BC PRN ×3 (07:07→14:06)
[2018-08-12] MEDS: buprenorphine/naloxone 8mg/2mg SL tablet SL SCH (08:39)
[2018-08-12] MEDS: nicotine 14mg patch - 24hr TD SCH (08:39)
[2018-08-12] MEDS: duloxetine 30mg CAPSULE.DR PO SCH (08:40)
[2018-08-12] MEDS: atorvastatin 20mg tablet PO SCH (08:40)
[2018-08-12 16:35] VITALS: BP 112/70
== END | disposition home or self-care (01) ==
LOC: ER 09:50
DX: F32.9 Major depressive disorder, single episode, unspecified (principal); R45.851 Suicidal ideations; G89.29 Other chronic pain; F12.90 Cannabis use, unspecified, uncomplicated; E03.9 Hypothyroidism, unspecified; F41.9 Anxiety disorder, unspecified; F43.10 Post-traumatic stress disorder, unspecified; Z90.49 Acquired absence of other specified parts of digestive tract; Z98.890 Other specified postprocedural states; Z79.82 Long term (current) use of aspirin; Z79.899 Other long term (current) drug therapy; Z88.8 Allergy status to other drugs, medicaments and biological substances
CPT/HCPCS: 36415; 80053; 80305; 81003; 83735; 85025; 85610; 85730; 99285

== ENCOUNTER 2022-08-23 10:15 | Inpatient (IN) | payer MEDICARE, MEDICAID ==
[~2022-08-23] VITALS: Ht 188 cm; Wt 93.2 kg
[2022-08-23] MEDS: dextrose 5%-1/2 normal saline 1,000 ML IV SCH ×2 (03:21→16:17)
[~2022-08-23 10:15] MED LIST changes: -ASPI-1071 PO; -ATOR40TA71 PO; -BUPR1FIL5 SL; -COL100C PO; -DULO60CA64 PO; -METR500T PO; +MIRT-116 PO; -MIRT15TA PO; -MIRT30TA8 PO; -NICO2GUM29 BC; -NUT.237L32 PO; -PANT40TA4 PO; -TRAZ-219 PO; +TRAZ-256 PO; -nicotine prolacrilex 4mg gum BC PRN
[2022-08-23 11:42] LABS: BASOPHILS # (AUTO) 0.1 X10'3 (0-0.2); BASOPHILS % (AUTO) 0.2 % (0-1); EOSINOPHILS % (AUTO) 0.1 % (0-6); HEMATOCRIT 39.1 % (42.0-52.0); HEMOGLOBIN 12.9 g/dl (14.0-17.9); LYMPHOCYTES # (AUTO) 1.2 X10'3 (1.1-4.8); LYMPHOCYTES % (AUTO) 5.3 % (21-51); MEAN CORPUSCULAR HEMOGLOBIN 29.3 PG (27.0-31.0); MEAN CORPUSCULAR VOLUME 88.7 FL (78-98); MEAN PLATELET VOLUME 7.6 FL (7.4-10.4); MONOCYTES # (AUTO) 1.5 X10'3 (0-0.9); MONOCYTES % (AUTO) 6.6 % (2-12); NEUTROPHILS # (AUTO) 19.9 X10'3 (1.8-7.7); NEUTROPHILS % (AUTO) 87.8 % (42-75); PLATELET COUNT 321 X10'3 (140-440); RED CELL DISTRIBUTION WIDTH 15.1 % (11.5-14.5); WHITE BLOOD COUNT 22.7 X10'3 (4.5-11.0)
[2022-08-23 11:48] LABS: CLARITY,URINE CLEAR (Clear); GLUCOSE, URINE NEGATIVE (Neg); KETONES,URINE 15 mg/dl (Neg); LEUKOCYTE ESTERASE ,URINE NEGATIVE (Neg); NITRITES, URINE NEGATIVE (Neg); OCCULT BLOOD,URINE NEGATIVE (Neg); PH,URINE 6.5 (4.8-8.0); PROTEIN,URINE NEGATIVE (Neg)
[2022-08-23 11:50] LABS: COLOR,URINE DARK YELLOW (Yellow); UA COLLECTION TYPE CLN CATCH MIDSTREAM
[2022-08-23 11:52] LABS: ALANINE AMINOTRANSFERASE 23 U/L (12-78); ALBUMIN 3.1 G/DL (3.4-5.0); ALBUMIN/GLOBULIN RATIO 0.7 (1.1-1.5); ALKALINE PHOSPHATASE 155 IU/L (46-116); ANION GAP 9 (8-16); ASPARTATE AMINO TRANSFERASE 16 U/L (10-37); BILIRUBIN,TOTAL 0.9 MG/DL (0.1-1.0); BLOOD UREA NITROGEN 8 MG/DL (7-18); BUN/CREATININE RATIO 7.6 (5.4-32.0); CHLORIDE 98 MMOL/L (99-107); CREATININE 1.05 MG/DL (0.60-1.10); GLUCOSE 141 MG/DL (70-104); LIPASE 189 U/L (73-393); POTASSIUM 3.7 MMOL/L (3.5-5.1); SODIUM 132 MMOL/L (135-145); TOTAL CARBON DIOXIDE 25.3 MMOL/L (24-32); TOTAL PROTEIN 7.5 G/DL (6.4-8.2); eGFR 74 ML/MIN
[2022-08-23] MEDS ORDERED: normal saline 1000ML IV soln IV ONE (12:25)
[2022-08-23] MEDS ORDERED: iohexol 300mg/ml 100ml inj. ONE (12:31)
[2022-08-23 13:05] LABS: MAGNESIUM 1.7 MG/DL (1.5-2.4)
[2022-08-23] MEDS ORDERED: metroNIDAZOLE-Flagyl 500mg/NS 100 ML IV STA (13:19)
[2022-08-23] MEDS ORDERED: cefepime 2g/NS 100ml ADVANTAGE 100 ML IV STA (13:19)
[2022-08-23] MEDS ORDERED: magnesium Cl slow-release 64mg tablet PO PRN (13:55)
[2022-08-23] MEDS ORDERED: acetaminophen 325mg tablet PO PRN (13:55)
[2022-08-23] MEDS ORDERED: potassium Cl 40MEQ/1/2NS 520ml 520 ML IV PRN (13:55)
[2022-08-23] MEDS ORDERED: potassium Cl 20 mEq SR tablet PO PRN ×2 (13:55)
[2022-08-23] MEDS ORDERED: mag hydrox/Alum hydrox/simeth 30ml oral suspension PO PRN (13:55)
[2022-08-23] MEDS ORDERED: magnesium hydroxide 30ml (MOM) UD suspension PO PRN (13:55)
[2022-08-23] MEDS ORDERED: morphine 2 MG/ML inj. syringe IV PRN (13:55)
[2022-08-23] MEDS ORDERED: magnesium 4gm in 100ml NS 100 ML IV PRN (13:55)
[2022-08-23] MEDS: HYDROcodone/acetaminophen 5mg/325mg tablet PO PRN ×2 (14:37→19:36)
[2022-08-23] MEDS ORDERED: TRAZ-256 PO (15:52)
[2022-08-23] MEDS ORDERED: ARIP10TA57 PO (15:54)
[2022-08-23] MEDS ORDERED: BUPR1TAB45 SL (15:54)
[2022-08-23] MEDS ORDERED: DULO60CA65 PO (15:54)
[2022-08-23] MEDS ORDERED: ATOR40TA72 PO (15:54)
[2022-08-23] MEDS ORDERED: ASPI-611 PO (15:54)
[2022-08-23] MEDS ORDERED: TICA90TA2 PO (15:54)
[2022-08-23] MEDS ORDERED: LEVO137T2 PO (15:54)
[2022-08-23] MEDS ORDERED: ONDA4TAB12 PO (15:54)
[2022-08-23] MEDS ORDERED: PANT40TA54 PO (15:54)
[2022-08-23] MEDS ORDERED: IBUP-1986 PO (15:54)
[2022-08-23] MEDS: morphine 2 MG/ML inj. syringe IV PRN ×2 (16:17→21:21)
[2022-08-23 19:00] VITALS: BP 121/75
[2022-08-23] MEDS: docusate sod 100mg capsule PO SCH (19:36)
[2022-08-23] MEDS: K and/or MAG REPLACEMENT MC SCH (19:59)
[2022-08-23] MEDS: metroNIDAZOLE-Flagyl 500mg/NS 100 ML IV SCH (21:21)
[2022-08-23] MEDS: cefepime 1GM/NS ADD-VANTAGE 100 ML IV SCH (21:26)
[2022-08-23] MEDS ORDERED: ondansetron 4mg rapidly disintigrating tab PO PRN (22:05)
[2022-08-23] MEDS ORDERED: ibuprofen tablet 400 MG TABLET PO PRN (22:05)
[2022-08-23 22:27] VITALS: BP 126/66
[2022-08-23] MEDS: HYDROmorphone 1 mg/ml syringe IV PRN (23:11)
[2022-08-24] MEDS: HYDROmorphone 1 mg/ml syringe IV PRN ×5 (03:17→21:33)
[2022-08-24] MEDS: ondansetron/PF 4mg/2ml inj IV PRN ×2 (04:30→16:50)
[2022-08-24] MEDS: cefepime 1GM/NS ADD-VANTAGE 100 ML IV SCH ×3 (05:04→21:42)
[2022-08-24] MEDS: metroNIDAZOLE-Flagyl 500mg/NS 100 ML IV SCH ×3 (05:31→22:22)
[2022-08-24 06:00] VITALS: BP 123/59
[2022-08-24 06:03] LABS: BASOPHILS % (AUTO) 0.1 % (0-1); EOSINOPHILS # (AUTO) 0.1 X10'3 (0-0.9); EOSINOPHILS % (AUTO) 0.5 % (0-6); HEMATOCRIT 35.4 % (42.0-52.0); HEMOGLOBIN 11.6 g/dl (14.0-17.9); LYMPHOCYTES # (AUTO) 1.3 X10'3 (1.1-4.8); LYMPHOCYTES % (AUTO) 7.8 % (21-51); MEAN CORPUSCULAR HEMOGLOBIN 29.5 PG (27.0-31.0); MEAN CORPUSCULAR HGB CONC 32.9 g/dL (33.0-36.5); MEAN CORPUSCULAR VOLUME 89.7 FL (78-98); MEAN PLATELET VOLUME 7.8 FL (7.4-10.4); MONOCYTES % (AUTO) 6.1 % (2-12); NEUTROPHILS # (AUTO) 13.8 X10'3 (1.8-7.7); NEUTROPHILS % (AUTO) 85.5 % (42-75); PLATELET COUNT 285 X10'3 (140-440); RED BLOOD COUNT 3.94 X10'6 (4.70-6.10); RED CELL DISTRIBUTION WIDTH 14.7 % (11.5-14.5); WHITE BLOOD COUNT 16.2 X10'3 (4.5-11.0)
--- NOTE | 2022-08-24 06:26 | NUR ---
Patient in room [facility] 348. I have received report from Shreya ERAZO and had the opportunity to ask questions and assume patient care.
[2022-08-24] MEDS: docusate sod 100mg capsule PO SCH ×2 (06:47→20:03)
[2022-08-24] MEDS: pantoprazole 40mg Tablet.DR PO SCH (06:47)
[2022-08-24] MEDS: duloxetine 30mg CAPSULE.DR PO SCH (06:47)
[2022-08-24] MEDS: aspirin 81mg, enteric-coated 1 TAB TABLET.DR PO SCH (06:48)
[2022-08-24] MEDS: levoTHYROXINE 25mcg tablet PO SCH (06:48)
[2022-08-24] MEDS: levoTHYROXINE 112mcg tablet PO SCH (06:48)
[2022-08-24] MEDS: enoxaparin 40mg/0.4ml syringe SUBCUT SCH (06:50)
[2022-08-24 06:56] LABS: ALANINE AMINOTRANSFERASE 21 U/L (12-78); ALBUMIN 2.6 G/DL (3.4-5.0); ALBUMIN/GLOBULIN RATIO 0.6 (1.1-1.5); ALKALINE PHOSPHATASE 131 IU/L (46-116); ANION GAP 9 (8-16); ASPARTATE AMINO TRANSFERASE 16 U/L (10-37); BILIRUBIN,TOTAL 1.1 MG/DL (0.1-1.0); BLOOD UREA NITROGEN 8 MG/DL (7-18); BUN/CREATININE RATIO 7.8 (5.4-32.0); CALCIUM 8.5 MG/DL (8.5-10.1); CHLORIDE 99 MMOL/L (99-107); CREATININE 1.03 MG/DL (0.60-1.10); GLUCOSE 122 MG/DL (70-104); MAGNESIUM 1.7 MG/DL (1.5-2.4); POTASSIUM 3.5 MMOL/L (3.5-5.1); SODIUM 133 MMOL/L (135-145); TOTAL CARBON DIOXIDE 25.5 MMOL/L (24-32); TOTAL PROTEIN 6.7 G/DL (6.4-8.2); eGFR 75 ML/MIN
[2022-08-24] MEDS: K and/or MAG REPLACEMENT MC SCH ×2 (08:00→20:00)
[2022-08-24] MEDS: buprenorphine/naloxone 2-0.5mg sublingual tablet SL SCH (08:37)
[2022-08-24] MEDS: ticagrelor 90mg tablet PO SCH ×2 (08:37→20:03)
[2022-08-24] MEDS: dextrose 5%-1/2 normal saline 1,000 ML IV SCH ×2 (09:50→20:03)
[2022-08-24 10:00] VITALS: BP 116/66
--- NOTE | 2022-08-24 10:10 | NUR ---
REINSPECTOR documentation: I have reviewed and agree with all interventions, assessments performed and documented by Karis Pinzon LVN .
--- NOTE | 2022-08-24 10:54 | NUR ---
Patient in room [facility] 348. I have received report from nancy GRIFFITH and had the opportunity to ask questions and assume patient care.
[2022-08-24 18:00] VITALS: BP 114/66
[2022-08-24] MEDS ORDERED: traZODone 150mg tablet PO SCH (21:00)
[2022-08-24] MEDS ORDERED: atorvastatin 20mg tablet PO SCH (21:00)
[2022-08-24] MEDS ORDERED: ARIPIPRAZOLE 10 MG TABLET PO SCH (21:00)
[2022-08-24 22:00] VITALS: BP 111/58
[2022-08-25] MEDS: HYDROmorphone 1 mg/ml syringe IV PRN ×2 (02:18→06:25)
[2022-08-25] MEDS: cefepime 1GM/NS ADD-VANTAGE 100 ML IV SCH (05:30)
[2022-08-25] MEDS: dextrose 5%-1/2 normal saline 1,000 ML IV SCH (05:55)
[2022-08-25 06:00] VITALS: BP 132/65
[2022-08-25] MEDS: metroNIDAZOLE-Flagyl 500mg/NS 100 ML IV SCH (06:21)
[2022-08-25 06:54] LABS: BASOPHILS % (AUTO) 0.3 % (0-1); EOSINOPHILS # (AUTO) 0.2 X10'3 (0-0.9); EOSINOPHILS % (AUTO) 1.6 % (0-6); HEMOGLOBIN 11.5 g/dl (14.0-17.9); LYMPHOCYTES # (AUTO) 1.6 X10'3 (1.1-4.8); MEAN CORPUSCULAR HEMOGLOBIN 29.4 PG (27.0-31.0); MEAN CORPUSCULAR HGB CONC 32.8 g/dL (33.0-36.5); MEAN CORPUSCULAR VOLUME 89.4 FL (78-98); MEAN PLATELET VOLUME 8.1 FL (7.4-10.4); NEUTROPHILS # (AUTO) 11.5 X10'3 (1.8-7.7); NEUTROPHILS % (AUTO) 80.1 % (42-75); PLATELET COUNT 280 X10'3 (140-440); RED BLOOD COUNT 3.92 X10'6 (4.70-6.10); RED CELL DISTRIBUTION WIDTH 14.4 % (11.5-14.5); WHITE BLOOD COUNT 14.3 X10'3 (4.5-11.0)
[2022-08-25 07:10] LABS: ALANINE AMINOTRANSFERASE 19 U/L (12-78); ALBUMIN 2.4 G/DL (3.4-5.0); ALBUMIN/GLOBULIN RATIO 0.6 (1.1-1.5); ALKALINE PHOSPHATASE 130 IU/L (46-116); ANION GAP 10 (8-16); ASPARTATE AMINO TRANSFERASE 18 U/L (10-37); BILIRUBIN,TOTAL 0.8 MG/DL (0.1-1.0); BLOOD UREA NITROGEN 6 MG/DL (7-18); BUN/CREATININE RATIO 5.9 (5.4-32.0); CALCIUM 8.4 MG/DL (8.5-10.1); CHLORIDE 101 MMOL/L (99-107); CREATININE 1.01 MG/DL (0.60-1.10); GLUCOSE 126 MG/DL (70-104); MAGNESIUM 1.8 MG/DL (1.5-2.4); POTASSIUM 3.2 MMOL/L (3.5-5.1); SODIUM 136 MMOL/L (135-145); TOTAL CARBON DIOXIDE 25.2 MMOL/L (24-32); TOTAL PROTEIN 6.6 G/DL (6.4-8.2); eGFR 77 ML/MIN
[2022-08-25] MEDS: ticagrelor 90mg tablet PO SCH (07:50)
[2022-08-25] MEDS: pantoprazole 40mg Tablet.DR PO SCH (07:50)
[2022-08-25] MEDS: aspirin 81mg, enteric-coated 1 TAB TABLET.DR PO SCH (07:50)
[2022-08-25] MEDS: docusate sod 100mg capsule PO SCH (07:50)
[2022-08-25] MEDS: levoTHYROXINE 112mcg tablet PO SCH (07:50)
[2022-08-25] MEDS: duloxetine 30mg CAPSULE.DR PO SCH (07:50)
[2022-08-25] MEDS: levoTHYROXINE 25mcg tablet PO SCH (07:50)
[2022-08-25] MEDS: enoxaparin 40mg/0.4ml syringe SUBCUT SCH (07:51)
[2022-08-25] MEDS: K and/or MAG REPLACEMENT MC SCH (07:54)
[2022-08-25] MEDS: buprenorphine/naloxone 2-0.5mg sublingual tablet SL SCH (09:16)
[2022-08-25 10:00] VITALS: BP 118/73
[2022-08-25] MEDS ORDERED: CIPR-202 PO (11:37)
[2022-08-25] MEDS ORDERED: METR-159 PO (11:37)
--- NOTE | 2022-08-25 14:44 | NUR ---
promotional table spacer promotional table spacer Page Sent promotional table spacer PAGER ID: [phone] MESSAGE: COLLINS PERERA 348B- TOLERATED LUNCH, WILL DISCHARGE PLANNED THANK YOU RICARDO ERAZO
== END 2022-08-25 15:23 | disposition home or self-care (01) | DRG 392 ==
LOC: ER 10:16 → ED HOLD 13:59 → EDBEDREQ 14:25 → SUR 3N 16:05
PROVIDERS: ADMIT Internal Medicine; ATTEND Internal Medicine
PROC: BW211ZZ Computerized Tomography (CT Scan) of Abdomen and Pelvis using Low Osmolar Contrast (ICD-10-PCS; principal; 2022-08-23)
DX: A09 Infectious gastroenteritis and colitis, unspecified (principal); E87.1 Hypo-osmolality and hyponatremia; F32.A Depression, unspecified; M54.9 Dorsalgia, unspecified; F12.90 Cannabis use, unspecified, uncomplicated; K57.90 Diverticulosis of intestine, part unspecified, without perforation or abscess without bleeding; F41.0 Panic disorder [episodic paroxysmal anxiety]; G89.29 Other chronic pain; K21.9 Gastro-esophageal reflux disease without esophagitis; I25.2 Old myocardial infarction; Z82.49 Family history of ischemic heart disease and other diseases of the circulatory system; Z85.850 Personal history of malignant neoplasm of thyroid; Z87.891 Personal history of nicotine dependence; Z90.49 Acquired absence of other specified parts of digestive tract; Z88.8 Allergy status to other drugs, medicaments and biological substances; Z95.5 Presence of coronary angioplasty implant and graft; Z79.899 Other long term (current) drug therapy; E03.9 Hypothyroidism, unspecified; F41.9 Anxiety disorder, unspecified
CPT/HCPCS: 36415; 71045; 74177; 80053; 81003; 83605; 83690; 83735; 84145; 85025; 87040; 93005; 99285; G0378; J0692; J1170; J1650; J2270; J2405; J3490; J7030; J7042; Q9967

== ENCOUNTER 2024-08-20 16:21 | Emergency (ER) | payer MEDICARE, MEDICAID ==
[~2024-08-20] VITALS: Ht 188 cm; Wt 100.6 kg
[~2024-08-20 16:21] MED LIST changes: +ARIP10TA87 PO; +ASPI-611 PO; -ATOR40TA PO; +ATOR40TA72 PO; -BUPR1FIL3 SL; +BUPR1TAB45 SL; -DULO-31 PO; +DULO60CA65 PO; +IBUP-1986 PO; -LEVO125T PO; +LEVO137T2 PO; -MIRT-116 PO; +ONDA-243 PO; -ONDA4TAB12 PO; -PANT-47 PO; +PANT40TA54 PO; +TICA90TA2 PO
[2024-08-20 17:15] LABS: BASOPHILS # (AUTO) 0.1 X10'3 (0-0.2); BASOPHILS % (AUTO) 0.5 % (0-1); EOSINOPHILS # (AUTO) 0.1 X10'3 (0-0.9); EOSINOPHILS % (AUTO) 0.5 % (0-6); HEMATOCRIT 41.6 % (42.0-52.0); HEMOGLOBIN 14.1 g/dl (14.0-17.9); LYMPHOCYTES # (AUTO) 2.9 X10'3 (1.1-4.8); LYMPHOCYTES % (AUTO) 24.3 % (21-51); MEAN CORPUSCULAR HEMOGLOBIN 31.1 PG (27.0-31.0); MEAN CORPUSCULAR HGB CONC 33.9 g/dL (33.0-36.5); MEAN CORPUSCULAR VOLUME 91.7 FL (78-98); MEAN PLATELET VOLUME 7.7 FL (7.4-10.4); MONOCYTES # (AUTO) 0.6 X10'3 (0-0.9); MONOCYTES % (AUTO) 5.3 % (2-12); NEUTROPHILS # (AUTO) 8.1 X10'3 (1.8-7.7); NEUTROPHILS % (AUTO) 69.4 % (42-75); PLATELET COUNT 290 X10'3 (140-440); RED BLOOD COUNT 4.54 X10'6 (4.70-6.10); RED CELL DISTRIBUTION WIDTH 13.9 % (11.5-14.5); WHITE BLOOD COUNT 11.7 X10'3 (4.5-11.0)
[2024-08-20 17:26] LABS: ALANINE AMINOTRANSFERASE 27 U/L (12-78); ALBUMIN 3.7 G/DL (3.4-5.0); ALBUMIN/GLOBULIN RATIO 0.9 (1.1-1.5); ALKALINE PHOSPHATASE 114 IU/L (46-116); ANION GAP 5 (8-16); ASPARTATE AMINO TRANSFERASE 16 U/L (10-37); BILIRUBIN,TOTAL 0.3 MG/DL (0.1-1.0); BLOOD UREA NITROGEN 13 MG/DL (7-18); BUN/CREATININE RATIO 9.1 (10.0-20.0); CALCIUM 9.4 MG/DL (8.5-10.1); CHLORIDE 101 MMOL/L (99-107); CREATININE 1.43 MG/DL (0.60-1.10); GLUCOSE 110 MG/DL (70-104); POTASSIUM 4.6 MMOL/L (3.5-5.1); SODIUM 139 MMOL/L (135-145); TOTAL CARBON DIOXIDE 33.2 MMOL/L (24-32); TOTAL PROTEIN 7.8 G/DL (6.4-8.2); eCRCL 67 ML/MIN; eGFR 51 ML/MIN
[2024-08-20 17:34] LABS: PRO BRAIN NATRIURETIC PEPTIDE < 30 PG/ML (0-125)
[2024-08-20 20:30] VITALS: BP 135/80; PULSE 55; RESP 16; O2SAT 96
[2024-08-20] MEDS: normal saline 1000ML IV soln IVB ONE (20:47)
[2024-08-20 21:12] VITALS: TEMP 98.2
== END 2024-08-20 21:14 | disposition home or self-care (01) ==
LOC: ER 16:22
DX: R07.89 Other chest pain (principal); I25.2 Old myocardial infarction; E03.9 Hypothyroidism, unspecified; G89.29 Other chronic pain; F41.9 Anxiety disorder, unspecified; F32.A Depression, unspecified; F12.90 Cannabis use, unspecified, uncomplicated; F41.0 Panic disorder [episodic paroxysmal anxiety]; Z98.890 Other specified postprocedural states; Z90.49 Acquired absence of other specified parts of digestive tract; Z88.8 Allergy status to other drugs, medicaments and biological substances
CPT/HCPCS: 36415; 71045; 80053; 83880; 84484; 85025; 93005; 96360; 99285; J7030

== ENCOUNTER 2024-11-22 09:32 | Emergency (ER) | payer MEDICARE, MEDICAID ==
[~2024-11-22] VITALS: Ht 177.8 cm; Wt 98.0 kg
[2024-11-22 09:40] VITALS: BP 197/128; PULSE 105; RESP 18; TEMP 97.2; O2SAT 97
== END 2024-11-22 10:12 | disposition left against medical advice (07) ==
LOC: ER 09:33
DX: Z51.81 Encounter for therapeutic drug level monitoring (principal); E03.9 Hypothyroidism, unspecified; F41.9 Anxiety disorder, unspecified; F32.A Depression, unspecified; Z88.8 Allergy status to other drugs, medicaments and biological substances; Z90.49 Acquired absence of other specified parts of digestive tract; Z98.890 Other specified postprocedural states
CPT/HCPCS: 99281